=== PATIENT | male | born 1995 | race Two or more races ===

== ENCOUNTER 2019-08-23 17:49 | Day surgery (SDC) | payer OTHER ==
[~2019-08-23] VITALS: Ht 172.7 cm; Wt 70.4 kg
[2019-08-23] MEDS ORDERED: OMNIPAQUE 350 MG/ML, 100ML BOTTLE ONE (18:17)
--- NOTE | 2019-08-23 18:19 | NUR ---
PT PRESENTS TO ED WITH RLQ ABD PAIN X2 DAYS. PT DENIES SURGICAL HX. INCREASED DISCOMFORT ON PALPATION. NAUSEA WITH PALPATION. PT SITTING UP IN BED, RESPIRATIONS EVEN AND UNLABORED ON RA. NAD NOTED AT THIS TIME.
[2019-08-23] MEDS ORDERED: SODIUM CHLORIDE FLUSH 10ML SYR IVF ONE (18:30)
[2019-08-23 18:51] LABS: ALANINE AMINOTRANSFERASE 24 U/L (12-78); ALBUMIN 3.9 g/dL (3.4-5.0); ANION GAP 8 mmol/L (5-15); BASOPHILS # (AUTO) 0.05 x10^3/uL (0-0.1); BASOPHILS % (AUTO) 1 % (0-1); CALCIUM 9.1 mg/dL (8.5-10.1); CHLORIDE 104 mmol/L (98-107); EOSINOPHILS # (AUTO) 0.02 x10^3/uL (0-0.4); EOSINOPHILS % (AUTO) 0 % (1-7); LYMPHOCYTES % (AUTO) 17 % (22-44); MD NO; MEAN CORPUSCULAR HEMOGLOBIN 30.9 pg (27.5-34.5); MEAN CORPUSCULAR HGB CONC 33.3 g/dL (33.2-36.2); MEAN CORPUSCULAR VOLUME 92.8 fL (81-97); MEAN PLATELET VOLUME 7.3 fL (7.4-10.4); MONOCYTES # (AUTO) 0.85 x10^3/uL (0.2-0.8); MONOCYTES % (AUTO) 12 % (2-9); NEUTROPHILS # (AUTO) 5.12 x10^3/uL (1.8-6.8); NEUTROPHILS % (AUTO) 71 % (42-75); PLATELET COUNT 260 x10^3/uL (130-400); RED BLOOD COUNT 5.03 x10^6/uL (4.38-5.82); RED CELL DISTRIBUTION WIDTH 13.5 % (9.4-14.8)
[2019-08-23 18:53] LABS: ALKALINE PHOSPHATASE 69 U/L (45-117); BILIRUBIN,TOTAL 0.5 mg/dL (0.2-1.0); CREATININE 1.29 mg/dL (0.7-1.3); TOTAL PROTEIN 8.2 g/dL (6.4-8.2)
--- NOTE | 2019-08-23 18:54 | NUR ---
REPORT TO CHANTE DAVIS.
[2019-08-23 19:00] LABS: MICROSCOPIC NOT IND
--- NOTE | 2019-08-23 19:23 | NUR ---
PT RESTING ON GURNEY, MONITORS IN PLACE, FAMILY AT BEDSIDE, DENIES NEEDS, CALL LIGHT WITHIBN REACH. AWAITING CT RESULT
[2019-08-23] MEDS ORDERED: CEFTRIAXONE PMX 1GM/50ML 50 ML ONE (20:19)
--- NOTE | 2019-08-23 20:23 | NUR ---
[facility] OR ON TELEPHONE, UPDATED ON PT STATUS
[2019-08-23] MEDS ORDERED: SODIUM CHLORIDE 0.9% 1,000ML IVBOLUS ONE (20:30)
[2019-08-23] MEDS ORDERED: CEFTRIAXONE PMX 1GM/50ML 50 ML IVPB ONE (20:30)
--- NOTE | 2019-08-23 20:57 | NUR ---
patient to OR
[2019-08-23] MEDS ORDERED: MIDAZOLAM 1 MG/ML, 2ML ONE (20:58)
[2019-08-23] MEDS ORDERED: FENTANYL PF 250 MCG/5ML ONE (20:58)
[2019-08-23] MEDS ORDERED: ROCURONIUM 10MG/ML,5ML ONE (21:25)
[2019-08-23] MEDS ORDERED: BALANCED SALT OPHTH IRRIG SOLN 18ML ONE (21:26)
[2019-08-23] MEDS ORDERED: OXYcodone 5 MG/5 ML ORAL.SOL UDC ONE (21:29)
[2019-08-23] MEDS ORDERED: OXYcodone 5 MG/5 ML ORAL.SOL UDC PO PRN (21:30)
[2019-08-23] MEDS ORDERED: ACETAMINOPHEN 100 ML IVPB ONE (21:30)
[2019-08-23] MEDS ORDERED: MEPERIDINE/PF 25MG/0.5ML IVPush PRN (21:30)
[2019-08-23] MEDS ORDERED: FENTANYL PF 100 MCG/2ML IV PRN (21:30)
[2019-08-23] MEDS ORDERED: HYDROmorphone 1 MG/ML, 1ML INJ IVPush PRN (21:30)
[2019-08-23] MEDS ORDERED: morphine SULFATE 10 MG/ML, 1ML IVPush PRN (21:30)
[2019-08-23] MEDS ORDERED: BUPIVACAINE/PF-EPI 0.5% 1:200K INFIL ONE (21:45)
[2019-08-23] MEDS ORDERED: SUCCINYLCHOLINE 20 MG/ML, 10ML ONE (21:56)
[2019-08-23] MEDS ORDERED: PROPOFOL 10 MG/ML, 20ML ONE (21:56)
[2019-08-23] MEDS ORDERED: GLYCOPYRROLATE 0.2MG/1ML, 5ML ONE (21:56)
[2019-08-23] MEDS ORDERED: SUGAMMADEX 200 MG/2 ML IVPush ONE (21:56)
[2019-08-23] MEDS ORDERED: CEFAZOLIN 1,000 MG ONE (21:56)
[2019-08-23] MEDS ORDERED: NEOSTIGMINE 1 MG/ML, 10ML ONE (21:56)
[2019-08-23] MEDS ORDERED: ONDANSETRON 2MG/ML, 2ML ONE (21:56)
[2019-08-23] MEDS ORDERED: ONDANSETRON 2MG/ML, 2ML IVPush PRN (23:00)
[2019-08-23 23:25] VITALS: BP 134/91
[2019-08-23 23:26] VITALS: BP 134/91
[2019-08-24 00:25] LABS: ANION GAP 6 mmol/L (5-15); CALCIUM 8.5 mg/dL (8.5-10.1); CHLORIDE 105 mmol/L (98-107)
[2019-08-24 00:28] LABS: CREATINE KINASE, TOTAL 240 U/L (39-308); CREATININE 1.11 mg/dL (0.7-1.3)
== END 2019-08-24 01:00 | disposition home or self-care (01) ==
LOC: OR 20:28 → UNDOADMIN 20:30 → EDIP 20:30 → OR 20:30 → EDSTATUS 21:00 → EDIP 23:11 → 4NE 23:11 → OR 08-24 01:00 → UNDODISIN 08-24 01:00
PROVIDERS: ATTEND Student in an Organized Health Care Education/Training Program
DX: K35.80 Unspecified acute appendicitis (principal)
CPT/HCPCS: 36415; 44970; 74177; 80048; 80053; 81003; 82550; 83690; 85025; 88304; 96374; 96375; 99285; J0131; J0330; J0690; J0696; J2250; J2405; J2704; J2710; J3010; J7030; Q9967; G0378